=== PATIENT | male | born 2000 ===

== ENCOUNTER 2019-09-01 09:23 | Outpatient (CLI) | payer OTHER ==
--- NOTE | 2019-09-01 09:54 | CT ---
EXAM: CT brain without contrast HISTORY: Palpable knot along the right parietal scalp COMPARISON: None TECHNIQUE: Multiple contiguous axial images were obtained and a CT of the brain without contrast. FINDINGS: The brain is normal in morphology and attenuation without focal lesions or confluent areas of infarction. There is no evidence of hydrocephalus, intracranial hemorrhage, or extra-axial fluid collection. There is a 1.0 cm bony excrescence projecting off the right parietal calvarium. This has a benign jean pierre earance. The scalp soft tissues are unremarkable. The visualized paranasal sinuses and mastoid air cells are well aerated. IMPRESSION: No evidence of acute intracranial abnormality
== END 2019-09-01 09:24 | disposition home or self-care (01) ==
LOC: BICCT 09:23
PROVIDERS: ATTEND Surgery
DX: R22.0 Localized swelling, mass and lump, head (principal)
CPT/HCPCS: 70450